=== PATIENT | female | born 1995 | race African-American/Black ===

== ENCOUNTER 2025-07-27 06:16 | Outpatient (CLI) | payer MEDICAID ==
[2025-07-27] MEDS ORDERED: iohexol 300 MG/1 ML 50ml polymer ONE (06:37)
[2025-07-27] MEDS ORDERED: GADOTERATE MEGLUMINE 7.5 MMOL/15 ML VIAL IV ONE (06:38)
[2025-07-27] MEDS ORDERED: LIDOcaine 1%/PF 5ML 10 MG/ML VIAL ONE (06:38)
[2025-07-27] MEDS ORDERED: LIDOcaine 1% 30ml preserv. free vial ONE (06:38)
--- NOTE | 2025-07-27 08:34 | RADIOLOGY REPORT ---
ANGIO ARTHROGRAM (A) Date: 07/27/2025 07:34 AM Clinical History: PAIN IN LEFT WRIST Comparison: None Procedure: Verbal and written informed consent were obtained from the patient for the procedure of LEFT WRIST JONT fluoroscopically guided arthrogram, after the procedure, risks, and benefits of the procedure were explained to the patient. Risks include bleeding, infection, reaction to injected medications, and damage to surrounding anatomic structures. The patient's questions were answered. The patient's most recent medical history was reviewed. A time out was performed to verify the patient's name, date of , and correct location of the procedure, prior to initiation of the procedure. The patient was placed supine on the fluoroscopic table and the area overlying the LEFT WRIST JOINT was prepped and draped in the usual sterile fashion. The patient tolerated the procedure well. There were no immediate complications. Home-care instructions were reviewed with the patient prior to the patient's discharge from the fluoroscopy suite. The patient verbally affirmed understanding of these instructions. Impression: Technically successful fluoroscopically guided LEFT WRIST JOINT arthrogram. The patient was transported to MRI for further imaging at the completion of the procedure.
--- NOTE | 2025-07-27 09:55 | RADIOLOGY REPORT ---
CLINICAL INFORMATION: Left wrist pain. COMPARISON: Correlation made to same day arthrogram injection Images. TECHNIQUE: Multisequence multiplanar MR arthrogram images of the left wrist were obtained after the uneventful intra-articular injection of a dilute gadolinium contrast mixture under fluoroscopic guidance. Refer to the separately dictated arthrogram injection report for details concerning the contrast injection. FINDINGS: TFCC: Edema and indistinctness of the fibers of the TFCC near its ulnar styloid and foveal attachments, may be sequelae of sprain with suspected partial tear at the volar aspect of the ulnar styloid attachment. Articular disc of the TFCC is intact. ULNAR VARIANCE: Neutral. DRUJ: No dislocation or subluxation. Small amount of fluid in the DRUJ. No contrast visualized in the DRUJ. LIGAMENTS: Full-thickness perforation at the proximal band of the scapholunate ligament. Dorsal and volar bands of the scapholunate ligament are intact. No widening at the scapholunate interval. Lunotriquetral ligament is intact. Edema and indistinctness of the fibers of the ulnar collateral ligament throughout its course, likely sprain and partial tear. There is edema along the course of the volar radioscaphoid capitate and volar radiolunate ligaments, likely sprains. Partial tears not excluded. Edema and indistinctness of the fibers of the volar ulnar triquetral and ulnolunate ligaments consistent with sprains and possible partial tears. FLEXOR TENDONS: Unremarkable signal intensity and course. No significant tendinosis, tenosynovitis, or tear. CARPAL TUNNEL: Unremarkable. Normal appearance of the median nerve and flexor retinaculum. EXTENSOR TENDONS: Unremarkable signal intensity and course. No significant tendinosis, tenosynovitis, or tear. BONES/JOINTS: No fracture or focal marrow contusion OTHER: No other significant findings. IMPRESSION: 1. Sprains of the ulnar styloid and foveal attachments of the TFCC with suspected partial tear at the ulnar styloid attachment. Articular disc of the TFCC is intact. 2. Additional ligamentous sprains and partial tears as detailed above.
== END 2025-07-27 23:59 | disposition home or self-care (01) ==
LOC: MRI 06:16
PROVIDERS: ATTEND Pediatrics Sports Medicine
DX: S63.592A Other specified sprain of left wrist, initial encounter (principal); M25.532 Pain in left wrist; X58.XXXA Exposure to other specified factors, initial encounter; Y93.89 Activity, other specified; Y92.89 Other specified places as the place of occurrence of the external cause; Y99.8 Other external cause status
CPT/HCPCS: 25246; 73222; 77002; A9575; J2003; J3490; Q9967